=== PATIENT | female | born 1950 | race Hispanic/Latino ===

== ENCOUNTER → 2024-09-26 | Outpatient (CLI) | payer OTHER, MEDICARE ==
[~2024-09-26] MED LIST: AEC81 PO; CHOL-34 PO; DULO60CA64 PO; GABA-1405 PO; ISOS30TA92 PO; LISI10TA24 PO; METF-444 PO; METO25TA6 PO; ROSU5TAB51 PO; VITAMIN D2 PO
== END | disposition home or self-care (01) ==
LOC: SHCH 10:59
PROVIDERS: ATTEND Internal Medicine Cardiovascular Disease
DX: Z09 Encounter for follow-up examination after completed treatment for conditions other than malignant neoplasm (principal); I87.2 Venous insufficiency (chronic) (peripheral)
CPT/HCPCS: 93971